=== PATIENT | male | born 1960 | race African-American/Black ===

== ENCOUNTER 2020-06-28 10:50 | Inpatient (IN) | payer MEDICARE, OTHER ==
[~2020-06-28] VITALS: Ht 180.3 cm; Wt 81.6 kg
[2020-06-28] MEDS ORDERED: SODIUM CHLORIDE 0.9% 1000ML 1,000 ML IV STA (11:08)
[2020-06-28 11:30] LABS: BASOPHILS % 0.7 % (0.0-1.0); EOSINOPHILS # (AUTO) 0.1 (0.0-0.4); EOSINOPHILS % 2.8 % (0.0-6.0); HEMATOCRIT 41.4 % (38.2-49.6); HEMOGLOBIN 13.4 g/dL (14.0-18.0); LYMPHOCYTES # (AUTO) 1.8 (1.0-3.2); LYMPHOCYTES % 40.7 % (18.0-39.1); MEAN CORPUSCULAR HEMOGLOBIN 29.6 pg (28-32); MEAN CORPUSCULAR HGB CONC 32.4 g/dL (31-35); MEAN CORPUSCULAR VOLUME 91.6 fL (81-99); MONOCYTES # (AUTO) 0.3 (0.2-0.8); MONOCYTES % 7.4 % (4.4-11.3); NEUTROPHILS # (AUTO) 2.1 (2.1-6.9); NEUTROPHILS % 48.2 % (38.7-80.0); PLATELET COUNT 231 x10e3/uL (140-360); RED BLOOD COUNT 4.52 x10e6/uL (4.3-5.7); RED CELL DISTRIBUTION WIDTH 14.6 % (11.7-14.4)
[2020-06-28 11:49] LABS: PARTIAL THROMBOPLASTIN TIME 27.7 seconds (23.8-35.5); PROTHROMBIN TIME 13.8 seconds (11.9-14.5)
[2020-06-28 11:53] LABS: ALANINE AMINOTRANSFERASE 21 IU/L (0-55); ALBUMIN 3.4 g/dL (3.5-5.0); ALBUMIN/GLOBULIN RATIO 0.9 (0.8-2.0); ALKALINE PHOSPHATASE 90 IU/L (40-150); ANION GAP 13.7 mmol/L (8-16); BLOOD UREA NITROGEN 18 mg/dL (7-26); BUN/CREATININE RATIO 24 (6-25); CALCIUM 9.1 mg/dL (8.4-10.2); CARBON DIOXIDE 24 mmol/L (22-29); CHLORIDE 109 mmol/L (98-107); CREATINE KINASE 207 IU/L (30-200); CREATININE, SERUM 0.74 mg/dL (0.72-1.25); EST GLOMERULAR FILTRATION RATE > 60 ML/MIN (60-); GLUCOSE 119 mg/dL (74-118); LIPASE 23 U/L (8-78); MAGNESIUM 1.8 MG/DL (1.3-2.1); POTASSIUM 3.7 mmol/L (3.5-5.1); SODIUM 143 mmol/L (136-145)
[2020-06-28 11:55] LABS: CLARITY,URINE CLEAR (CLEAR); COLOR,URINE YELLOW (YELLOW); KETONES,URINE NEGATIVE (NEGATIVE); LEUKOCYTE ESTERASE ,URINE NEGATIVE (NEGATIVE); NITRITE,URINE NEGATIVE (NEGATIVE); PROTEIN,URINE DIPSTICK NEGATIVE (NEGATIVE); URINE UROBILINOGEN 0.2 mg/dL (0.2 - 1)
[2020-06-28 12:12] LABS: BACTERIA,URINE MODERATE /HPF; EPITHELIAL CELLS,URINE FEW /LPF
[2020-06-28 12:13] LABS: THYROID STIMULATING HORMONE 0.838 uIU/mL (0.350-4.940)
[2020-06-28 12:13] LABS: MUCUS,URINE MODERATE (RARE); YEAST,URINE MODERATE
[2020-06-28] MEDS ORDERED: PIPER-TAZ 3.375 GM 50 ML IV SCH (12:45)
[2020-06-28] MEDS: PIPERACILLIN/TAZOBACTAM 3.375 GM in SODIUM CHLORIDE 0.9% 50ML 50 ML IV SCH ×2 (13:30→18:50)
[2020-06-28] MEDS ORDERED: VANCOMYCIN 1GM/NS 250 ML 250 ML IV ONE (13:45)
[2020-06-28] MEDS: AZITHROMYCIN 500MG/NS 250 ML 250 ML IV SCH (13:51)
[2020-06-28] MEDS: SODIUM CHLORIDE 0.9% 1000ML 1,000 ML IV SCH (14:18)
[2020-06-28 19:34] LABS: CREATINE KINASE 140 IU/L (30-200)
[2020-06-28 20:40] VITALS: BP 127/79
[2020-06-28] MEDS ORDERED: VITAMIN B-1100 MG PEG (21:14)
[2020-06-28] MEDS ORDERED: ASPIRIN CHEW81 MG PEG (21:14)
[2020-06-28] MEDS ORDERED: BACLOFEN10 MG PEG ×2 (21:14)
[2020-06-28] MEDS ORDERED: PEPCID20 MG PEG (21:14)
[2020-06-28] MEDS ORDERED: BACTRIM DS TAB1 EACH PEG (21:14)
[2020-06-28] MEDS ORDERED: ATORVASTATIN CA20 MG PEG (21:14)
[2020-06-28] MEDS ORDERED: LISINOPRIL10 MG PEG (21:14)
[2020-06-28] MEDS ORDERED: AMLODIPINE BESY10 MG PEG (21:14)
[2020-06-28] MEDS ORDERED: ACETAMINOP325 MG/10 PEG (21:14)
[2020-06-28] MEDS ORDERED: POLYETHYLENE GL17 GM PEG (21:14)
[2020-06-28] MEDS ORDERED: ZOLOFT50 MG PEG (21:14)
[2020-06-28] MEDS ORDERED: ARTIFICIAL TEAR15 ML OU (21:14)
[2020-06-28] MEDS ORDERED: IPRAT-ALBUT 0.5-3 ML INH (21:14)
[2020-06-28] MEDS ORDERED: FOLIC ACID-VIT1 EACH PO (21:14)
[2020-06-28] MEDS ORDERED: AMANTADINE50 MG/5 ML PEG (21:14)
[2020-06-28 21:30] VITALS: BP 127/79
[2020-06-29] VITALS: BP 155/84
[2020-06-29 01:47] LABS: CREATINE KINASE MB 1.7 ng/mL (0-5.0)
[2020-06-29 04:00] VITALS: BP 126/77
[2020-06-29] MEDS: SODIUM CHLORIDE 0.9% 1000ML 1,000 ML IV SCH ×3 (05:00→20:34)
[2020-06-29 05:33] LABS: BASOPHILS % 0.6 % (0.0-1.0); EOSINOPHILS # (AUTO) 0.2 (0.0-0.4); EOSINOPHILS % 2.8 % (0.0-6.0); HEMATOCRIT 39.5 % (38.2-49.6); HEMOGLOBIN 12.8 g/dL (14.0-18.0); LYMPHOCYTES # (AUTO) 1.7 (1.0-3.2); LYMPHOCYTES % 30.4 % (18.0-39.1); MEAN CORPUSCULAR HEMOGLOBIN 29.4 pg (28-32); MEAN CORPUSCULAR HGB CONC 32.4 g/dL (31-35); MEAN CORPUSCULAR VOLUME 90.8 fL (81-99); MONOCYTES # (AUTO) 0.5 (0.2-0.8); MONOCYTES % 8.7 % (4.4-11.3); NEUTROPHILS # (AUTO) 3.1 (2.1-6.9); NEUTROPHILS % 57.1 % (38.7-80.0); PLATELET COUNT 237 x10e3/uL (140-360); RED BLOOD COUNT 4.35 x10e6/uL (4.3-5.7); RED CELL DISTRIBUTION WIDTH 14.5 % (11.7-14.4)
[2020-06-29 05:58] LABS: ALANINE AMINOTRANSFERASE 18 IU/L (0-55); ALBUMIN 3.1 g/dL (3.5-5.0); ALBUMIN/GLOBULIN RATIO 0.9 (0.8-2.0); ALKALINE PHOSPHATASE 85 IU/L (40-150); BLOOD UREA NITROGEN 13 mg/dL (7-26); BUN/CREATININE RATIO 19 (6-25); CALCIUM 8.7 mg/dL (8.4-10.2); CARBON DIOXIDE 24 mmol/L (22-29); CHLORIDE 111 mmol/L (98-107); CREATININE, SERUM 0.67 mg/dL (0.72-1.25); EST GLOMERULAR FILTRATION RATE > 60 ML/MIN (60-); GLUCOSE 90 mg/dL (74-118); SODIUM 143 mmol/L (136-145)
[2020-06-29] MEDS: PIPERACILLIN/TAZOBACTAM 3.375 GM in SODIUM CHLORIDE 0.9% 50ML 50 ML IV SCH ×5 (06:00→17:14)
[2020-06-29 08:00] VITALS: BP 131/77
[2020-06-29] MEDS: AZITHROMYCIN 500MG/NS 250 ML 250 ML IV SCH (08:48)
[2020-06-29 10:00] VITALS: BP 124/75
[2020-06-29 16:25] VITALS: BP 114/75
[2020-06-29] MEDS: AMANTADINE HCL 50 MG/5 ML SOLUTION NG SCH (17:12)
[2020-06-29 20:00] VITALS: BP 123/63
[2020-06-29] MEDS: ATORVASTATIN 20 MG TAB PEG SCH (20:34)
[2020-06-29] MEDS: BACLOFEN 10 MG TAB PEG SCH (20:34)
[2020-06-30] VITALS: BP 139/80
[2020-06-30] MEDS: PIPERACILLIN/TAZOBACTAM 3.375 GM in SODIUM CHLORIDE 0.9% 50ML 50 ML IV SCH ×4 (00:15→17:04)
[2020-06-30] MEDS: SODIUM CHLORIDE 0.9% 1000ML 1,000 ML IV SCH (00:15)
[2020-06-30 04:00] VITALS: BP 154/88
[2020-06-30 05:50] LABS: BASOPHILS % 0.7 % (0.0-1.0); EOSINOPHILS # (AUTO) 0.1 (0.0-0.4); EOSINOPHILS % 2.5 % (0.0-6.0); HEMATOCRIT 35.8 % (38.2-49.6); HEMOGLOBIN 11.9 g/dL (14.0-18.0); LYMPHOCYTES # (AUTO) 2.2 (1.0-3.2); LYMPHOCYTES % 38.7 % (18.0-39.1); MEAN CORPUSCULAR HEMOGLOBIN 29.5 pg (28-32); MEAN CORPUSCULAR HGB CONC 33.2 g/dL (31-35); MEAN CORPUSCULAR VOLUME 88.6 fL (81-99); MONOCYTES # (AUTO) 0.6 (0.2-0.8); MONOCYTES % 9.9 % (4.4-11.3); NEUTROPHILS # (AUTO) 2.7 (2.1-6.9); NEUTROPHILS % 47.8 % (38.7-80.0); PLATELET COUNT 225 x10e3/uL (140-360); RED BLOOD COUNT 4.04 x10e6/uL (4.3-5.7); RED CELL DISTRIBUTION WIDTH 14.1 % (11.7-14.4)
[2020-06-30 06:08] LABS: ANION GAP 12.6 mmol/L (8-16); BLOOD UREA NITROGEN 11 mg/dL (7-26); BUN/CREATININE RATIO 16 (6-25); CARBON DIOXIDE 22 mmol/L (22-29); CHLORIDE 108 mmol/L (98-107); EST GLOMERULAR FILTRATION RATE > 60 ML/MIN (60-); GLUCOSE 86 mg/dL (74-118); POTASSIUM 3.6 mmol/L (3.5-5.1); SODIUM 139 mmol/L (136-145)
[2020-06-30] MEDS: ASPIRIN 81 MG CHEW TAB PEG SCH (07:47)
[2020-06-30] MEDS: FAMOTIDINE 20 MG TAB PEG SCH ×2 (07:47→17:04)
[2020-06-30] MEDS: SERTRALINE HCL 50 MG TAB PEG SCH (07:47)
[2020-06-30] MEDS: AZITHROMYCIN 500MG/NS 250 ML 250 ML IV SCH (09:12)
[2020-06-30] MEDS: AMANTADINE HCL 50 MG/5 ML SOLUTION NG SCH ×2 (09:13→17:04)
[2020-06-30] MEDS ORDERED: ACETAMINOPHEN 325 MG/10 ML UDC PEG PRN (11:30)
[2020-06-30] MEDS ORDERED: ALBUTEROL/IPRATROPIUM 3 ML NEB INH PRN (11:30)
[2020-06-30] MEDS: POLYETHYLENE GLYCOL 3350 17 GM PACK PEG SCH (17:04)
[2020-06-30] MEDS: ARTIFICIAL TEARS (OPTH) 15 ML BTL OU SCH ×2 (17:04→21:03)
[2020-06-30 20:00] VITALS: BP_SYST 120; BP_SYST 154; BP_DIAS 101; BP_DIAS 88
[2020-06-30] MEDS: LORAZEPAM INJ 2 MG/ML VIAL IV PRN (21:03)
[2020-06-30] MEDS: BACLOFEN 10 MG TAB PEG SCH (21:03)
[2020-06-30] MEDS: MELATONIN 3 MG TAB PO PRN (21:03)
[2020-06-30] MEDS: ATORVASTATIN 20 MG TAB PEG SCH (21:03)
[2020-07-01] VITALS (9 sets, daily range): BP systolic 108–159; BP diastolic 68–88
[2020-07-01] MEDS: PIPERACILLIN/TAZOBACTAM 3.375 GM in SODIUM CHLORIDE 0.9% 50ML 50 ML IV SCH ×4 (01:13→17:01)
[2020-07-01 04:58] LABS: BASOPHILS % 0.8 % (0.0-1.0); EOSINOPHILS # (AUTO) 0.1 (0.0-0.4); EOSINOPHILS % 2.5 % (0.0-6.0); HEMATOCRIT 36.3 % (38.2-49.6); HEMOGLOBIN 12.5 g/dL (14.0-18.0); LYMPHOCYTES # (AUTO) 1.5 (1.0-3.2); MEAN CORPUSCULAR HEMOGLOBIN 30.3 pg (28-32); MEAN CORPUSCULAR HGB CONC 34.4 g/dL (31-35); MEAN CORPUSCULAR VOLUME 87.9 fL (81-99); MONOCYTES # (AUTO) 0.5 (0.2-0.8); MONOCYTES % 11.2 % (4.4-11.3); NEUTROPHILS # (AUTO) 2.6 (2.1-6.9); NEUTROPHILS % 54.1 % (38.7-80.0); PLATELET COUNT 228 x10e3/uL (140-360); RED BLOOD COUNT 4.13 x10e6/uL (4.3-5.7); RED CELL DISTRIBUTION WIDTH 13.7 % (11.7-14.4)
[2020-07-01 05:29] LABS: ANION GAP 13.5 mmol/L (8-16); BLOOD UREA NITROGEN 6 mg/dL (7-26); BUN/CREATININE RATIO 10 (6-25); CARBON DIOXIDE 23 mmol/L (22-29); CHLORIDE 106 mmol/L (98-107); CREATININE, SERUM 0.63 mg/dL (0.72-1.25); EST GLOMERULAR FILTRATION RATE > 60 ML/MIN (60-); GLUCOSE 90 mg/dL (74-118); POTASSIUM 3.5 mmol/L (3.5-5.1); SODIUM 139 mmol/L (136-145)
[2020-07-01] MEDS: AMLODIPINE BESYLATE 10 MG TAB PEG SCH (09:07)
[2020-07-01] MEDS: FAMOTIDINE 20 MG TAB PEG SCH ×2 (09:07→15:55)
[2020-07-01] MEDS: ASPIRIN 81 MG CHEW TAB PEG SCH (09:07)
[2020-07-01] MEDS: ARTIFICIAL TEARS (OPTH) 15 ML BTL OU SCH ×3 (09:07→21:08)
[2020-07-01] MEDS: POLYETHYLENE GLYCOL 3350 17 GM PACK PEG SCH ×2 (09:07→16:10)
[2020-07-01] MEDS: AZITHROMYCIN 500MG/NS 250 ML 250 ML IV SCH (09:07)
[2020-07-01] MEDS: LISINOPRIL 10 MG TAB PEG SCH (09:08)
[2020-07-01] MEDS: AMLODIPINE BESYLATE 5 MG TAB PO SCH (09:08)
[2020-07-01] MEDS: QUETIAPINE FUMARATE 25 MG TAB PO SCH ×2 (09:11→16:10)
[2020-07-01] MEDS: SERTRALINE HCL 50 MG TAB PEG SCH (09:11)
[2020-07-01] MEDS: THIAMINE HCL 100 MG TAB PEG SCH (09:11)
[2020-07-01] MEDS: AMANTADINE HCL 50 MG/5 ML SOLUTION NG SCH ×2 (09:15→16:10)
[2020-07-01] MEDS ORDERED: FLUCONAZOLE 100 MG/NS 50 ML 50 ML IV SCH (14:15)
[2020-07-01] MEDS: ATORVASTATIN 20 MG TAB PEG SCH (20:56)
[2020-07-01] MEDS: BACLOFEN 10 MG TAB PEG SCH (20:56)
[2020-07-01] MEDS: LORAZEPAM INJ 2 MG/ML VIAL IV PRN (22:45)
[2020-07-02] VITALS (8 sets, daily range): BP systolic 102–124; BP diastolic 63–82
[2020-07-02] MEDS: MELATONIN 3 MG TAB PO PRN (00:06)
[2020-07-02] MEDS: PIPERACILLIN/TAZOBACTAM 3.375 GM in SODIUM CHLORIDE 0.9% 50ML 50 ML IV SCH ×4 (00:12→18:03)
[2020-07-02] MEDS: FAMOTIDINE 20 MG TAB PEG SCH ×2 (08:19→16:18)
[2020-07-02] MEDS: AZITHROMYCIN 500MG/NS 250 ML 250 ML IV SCH (08:28)
[2020-07-02] MEDS: AMANTADINE HCL 50 MG/5 ML SOLUTION NG SCH ×2 (08:28→16:33)
[2020-07-02] MEDS: POLYETHYLENE GLYCOL 3350 17 GM PACK PEG SCH ×2 (08:29→16:33)
[2020-07-02] MEDS: LISINOPRIL 10 MG TAB PEG SCH (08:29)
[2020-07-02] MEDS: ASPIRIN 81 MG CHEW TAB PEG SCH (08:29)
[2020-07-02] MEDS: ARTIFICIAL TEARS (OPTH) 15 ML BTL OU SCH ×3 (08:29→20:32)
[2020-07-02] MEDS: THIAMINE HCL 100 MG TAB PEG SCH (08:30)
[2020-07-02] MEDS: SERTRALINE HCL 50 MG TAB PEG SCH (08:30)
[2020-07-02] MEDS: AMLODIPINE BESYLATE 10 MG TAB PEG SCH (08:32)
[2020-07-02] MEDS: AMLODIPINE BESYLATE 5 MG TAB PO SCH (08:32)
[2020-07-02] MEDS ORDERED: SODIUM CHLORIDE 0.9% 250ML 250 ML ONE (13:42)
[2020-07-02] MEDS: QUETIAPINE FUMARATE 100 MG TAB PO SCH ×2 (14:56→21:43)
[2020-07-02] MEDS: ATORVASTATIN 20 MG TAB PEG SCH (20:32)
[2020-07-02] MEDS: BACLOFEN 10 MG TAB PEG SCH (20:32)
[2020-07-03] VITALS (7 sets, daily range): BP systolic 103–126; BP diastolic 60–79
[2020-07-03] MEDS: PIPERACILLIN/TAZOBACTAM 3.375 GM in SODIUM CHLORIDE 0.9% 50ML 50 ML IV SCH ×3 (00:15→13:41)
[2020-07-03] MEDS: QUETIAPINE FUMARATE 100 MG TAB PO SCH (05:48)
[2020-07-03] MEDS: AMANTADINE HCL 50 MG/5 ML SOLUTION NG SCH ×2 (08:06→16:06)
[2020-07-03] MEDS: POLYETHYLENE GLYCOL 3350 17 GM PACK PEG SCH ×2 (08:06→16:06)
[2020-07-03] MEDS: FAMOTIDINE 20 MG TAB PEG SCH ×2 (08:06→16:06)
[2020-07-03] MEDS: ASPIRIN 81 MG CHEW TAB PEG SCH (08:06)
[2020-07-03] MEDS: AZITHROMYCIN 500MG/NS 250 ML 250 ML IV SCH (08:06)
[2020-07-03] MEDS: AMLODIPINE BESYLATE 5 MG TAB PO SCH (08:06)
[2020-07-03] MEDS: ARTIFICIAL TEARS (OPTH) 15 ML BTL OU SCH ×2 (08:06→16:06)
[2020-07-03] MEDS: SERTRALINE HCL 50 MG TAB PEG SCH (08:07)
[2020-07-03] MEDS: THIAMINE HCL 100 MG TAB PEG SCH (08:07)
[2020-07-03] MEDS: AMLODIPINE BESYLATE 10 MG TAB PEG SCH (08:07)
[2020-07-03] MEDS: LISINOPRIL 10 MG TAB PEG SCH (08:07)
[2020-07-03] MEDS ORDERED: MELATONIN 3 MG TAB PEG PRN (10:00)
[2020-07-03 10:18] LABS: BASOPHILS % 0.7 % (0.0-1.0); EOSINOPHILS # (AUTO) 0.1 (0.0-0.4); EOSINOPHILS % 1.6 % (0.0-6.0); HEMATOCRIT 33.2 % (38.2-49.6); HEMOGLOBIN 11.4 g/dL (14.0-18.0); LYMPHOCYTES % 23.5 % (18.0-39.1); MEAN CORPUSCULAR HEMOGLOBIN 29.9 pg (28-32); MEAN CORPUSCULAR HGB CONC 34.3 g/dL (31-35); MEAN CORPUSCULAR VOLUME 87.1 fL (81-99); MONOCYTES # (AUTO) 0.6 (0.2-0.8); MONOCYTES % 14.7 % (4.4-11.3); NEUTROPHILS # (AUTO) 2.5 (2.1-6.9); PLATELET COUNT 222 x10e3/uL (140-360); RED BLOOD COUNT 3.81 x10e6/uL (4.3-5.7); RED CELL DISTRIBUTION WIDTH 13.7 % (11.7-14.4)
[2020-07-03 10:44] LABS: ALANINE AMINOTRANSFERASE 11 IU/L (0-55); ALBUMIN 2.6 g/dL (3.5-5.0); ALBUMIN/GLOBULIN RATIO 0.7 (0.8-2.0); ALKALINE PHOSPHATASE 65 IU/L (40-150); ANION GAP 12.1 mmol/L (8-16); BLOOD UREA NITROGEN 9 mg/dL (7-26); BUN/CREATININE RATIO 12 (6-25); CALCIUM 8.6 mg/dL (8.4-10.2); CARBON DIOXIDE 23 mmol/L (22-29); CHLORIDE 105 mmol/L (98-107); CREATININE, SERUM 0.78 mg/dL (0.72-1.25); EST GLOMERULAR FILTRATION RATE > 60 ML/MIN (60-); GLUCOSE 166 mg/dL (74-118); POTASSIUM 3.1 mmol/L (3.5-5.1); SODIUM 137 mmol/L (136-145)
[2020-07-03] MEDS ORDERED: QUETIAPINE FUMARATE 100 MG TAB PEG SCH (14:00)
[2020-07-04] MEDS ORDERED: AMLODIPINE BESYLATE 5 MG TAB PEG SCH (09:00)
== END 2020-07-03 17:50 | DRG 871 ==
LOC: ER 10:55 → ERHOLD 14:00 → ICU 20:32 → IMCU 06-29 09:25
PROVIDERS: ADMIT Internal Medicine; ATTEND Internal Medicine
DX: A41.9 Sepsis, unspecified organism (principal); J69.0 Pneumonitis due to inhalation of food and vomit; G93.41 Metabolic encephalopathy; T83.511A Infection and inflammatory reaction due to indwelling urethral catheter, initial encounter; B37.49 Other urogenital candidiasis; Z20.822 Contact with and (suspected) exposure to COVID-19; G20 Parkinson's disease; F41.9 Anxiety disorder, unspecified; F32.9 Major depressive disorder, single episode, unspecified; E11.9 Type 2 diabetes mellitus without complications; Z86.73 Personal history of transient ischemic attack (TIA), and cerebral infarction without residual deficits; I10 Essential (primary) hypertension; Z93.1 Gastrostomy status; Z79.82 Long term (current) use of aspirin
CPT/HCPCS: 36415; 51700; 70450; 71045; 74230; 80048; 80053; 81001; 82140; 82550; 82553; 83605; 83690; 83735; 83880; 84443; 84484; 85025; 85610; 85730; 87040; 87086; 93005; 97139; 99284; J0456; J1450; J2060; J2543; J3370; J3411; J7030; J7050; U0002